=== PATIENT | female | born 1995 | race Caucasian/White ===

== ENCOUNTER 2017-07-12 22:45 | Emergency (ER) | payer SELFPAY ==
[~2017-07-12] VITALS: Ht 165.1 cm; Wt 59.0 kg
--- NOTE | 2017-07-12 22:55 | NUR ---
BIB [facility] 85
--- NOTE | 2017-07-12 23:00 | NUR ---
PT BIB [facility] WITH A C/O ETOH. PT'S FRIEND BECAME WORRIED WHEN PT WAS NOT ACTING NORMALLY AT THE GYM. PT APPEARED UNSTEADY TO HER FRIEND. PT IS AMBULATORY, BUT IS NOT STEADY. PT DOES NOT WANT TO STAY. PT'S FRIEND STATED THAT SHE WOULD TAKE HER HOME AND MONITOR HER. DR. VALIENTE IS OK WITH PT GOING HOME AT THIS TIME. PT IS CALM AND COOPERATIVE. PT'S FRIEND IS CALLING [facility] TO TAKE THEM HOME.
--- NOTE | 2017-07-12 23:04 | NUR ---
PT TAKEN TO THE [facility] VIA WC.
== END 2017-07-12 23:04 | disposition home or self-care (01) ==
LOC: ER 22:50
DX: F10.129 Alcohol abuse with intoxication, unspecified (principal)
CPT/HCPCS: 99283; A4606; Z7610